=== PATIENT | female | born 1965 | race Caucasian/White ===

== ENCOUNTER 2019-03-14 06:20 | Day surgery (SDC) | payer OTHER ==
[2019-03-14] MEDS ORDERED: LIDOCAINE 2% MDV (20MG/ML) 20ML VIAL IV ONE (06:21)
[2019-03-14] MEDS ORDERED: MIDAZOLAM HCL 2MG/2ML VIAL IV ONE (06:21)
[2019-03-14] MEDS ORDERED: PROPOFOL 10 MG/ML VIAL IV ONE (06:21)
[2019-03-14] MEDS ORDERED: ONDANSETRON HCL IV 4 MG/2 ML VIAL IVP ONE (06:21)
[2019-03-14] MEDS ORDERED: RINGERS SOLUTION,LACTATED 1,000 ML IV ONE (06:45)
[2019-03-14] MEDS ORDERED: LIDOCAINE 1% W/EPI 1:200,000 MPF 30ML SQ ONE (08:14)
[2019-03-14] MEDS ORDERED: BUPIVACAINE 0.25% PF (2.5MG/ML) 10ML VIAL IM ONE (08:14)
[2019-03-14] MEDS ORDERED: DEXAMETHASONE PRESERVATIVE FREE 10MG/ML VIAL SQ ONE (08:14)
[2019-03-14] MEDS ORDERED: BUPIVACAINE 0.5% W/EPI MPF 30 ML VIAL SQ ONE (08:14)
--- NOTE | 2019-03-15 13:51 | Operative Note ---
DATE OF SURGERY: 03/14/2019 PREOPERATIVE DIAGNOSIS: Lumbar spondylosis with sacroiliitis, ICD10 code M46.1. OPERATION: Fluoroscopic-guided infiltration of block bilateral SI joints. INDICATION: This patient presents with pain which is low back and hip. Examination showed tenderness of the lumbar spine away from the midline and directly over the SI joints. Diagnostic studies did show multilevel spondylosis. PROCEDURE: Intravenous line, vital sign monitoring, IV sedation, prepped and draped in sterile technique. Under imaging, the skin over the SI joints in the area of pain was identified and marked, infiltrated. A 22-gauge 3-1/2 inch needle into the SI with 3 mL of 0.5% Marcaine and dexamethasone injected. This was repeated bilaterally. Areas cleaned. Topical antibiotic and sterile dressing applied. Will monitor and evaluate. MTDD
== END 2019-03-14 08:45 | disposition home or self-care (01) ==
LOC: SUR 06:20
PROVIDERS: ATTEND Pain Medicine Interventional Pain Medicine
DX: M46.1 Sacroiliitis, not elsewhere classified (principal); R00.2 Palpitations
CPT/HCPCS: J2405; J7120

== ENCOUNTER 2019-03-23 06:11 | Emergency (ER) | payer OTHER ==
--- NOTE | 2019-03-23 06:25 | Emergency Department Record ---
History of Present Illness - General Chief Complaint: Back Pain/Injury Stated Complaint: SEVERE PERSISITING PAIN IN BACK Time Seen by Provider: 03/23/19 06:14 Source: Patient Mode of Arrival: Ambulatory Limitations: No limitations - History of Present Illness Initial Comments: 53 yo female presents to ED for evaluation of mid-back pain symptoms that began approximately 6 days ago, improved over the course of last weekend, but worsened this morning upon awakening. Patient denies injury or trauma, denies fevers, chills, or recent illness. Patient did undergo recent flouroscopic bilateral infiltrations SI joint on 03/14/19 with improvement in her chronic low-back pain symptoms. Patient reports that this morning's pain symptoms are different, repo rts that she has Flexeril at home that she took last weekend that "knocked her out for 20 hours". Patient is declining medications on examination but requesting radiographs of the thoracic spine for evaluation. Patient denies urinary retention symptoms, numbness over the groin region, or lower extremity weakness on examination. Patient denies previous spinal surgery other than facet block injections. MD Complaint: Back pain Onset/Timin -: Days(s) Similar Symptoms Previously: No Place: Home Radiation: None Severity scale (1-10): 8 Quality: Burning Consistency: Intermittent Improves With: None Worsens With: None Context: Unknown Associated Symptoms: Denies other symptoms Treatments Prior to Arrival: NSAIDS - Related Data Home Medications Medication Instructions Recorded Confirmed Last Taken Atenolol 100 mg PO BID 03/23/19 03/23/19 1 Day Ago ~03/22/19 Buspirone HCl [Buspar] 1 tab PO DAILY 03/23/19 03/23/19 1 Day Ago ~03/22/19 Clonidine HCl 1 tab PO DAILY 03/23/19 03/23/19 1 Day Ago ~03/22/19 Paroxetine HCl [Paroxetine ER] 1 tab PO DAILY 03/23/19 03/23/19 1 Day Ago ~03/22/19 Allergies Allergy/AdvReac Type Severity Reaction Status Date / Time levofloxacin [From Levaquin] AdvReac MUSCLE Verified 03/12/19 09:21 WEAKNESS omeprazole AdvReac MUSCLE Verified 03/12/19 09:21 WEAKNESS Review of Systems Constitutional: Denies: Chills, Fever, Malaise, Night sweats Eyes: Denies: Eye discharge, Eye pain ENT: Denies: Congestion, Ear pain, Epistaxis Respiratory: Denies: Cough, Dyspnea Cardiovascular: Denies: Chest pain, Dyspnea on exertion Endocrine: Denies: Fatigue, Heat or cold intolerance Gastrointestinal: Denies: Abdominal pain, Nausea, Vomiting Genitourinary: Denies: Incontinence, Retention Musculoskeletal: Reports: Back pain. Denies: Arthralgia, Gout, Joint swelling Skin: Denies: Bruising, Change in color Neurological: Denies: Abnormal gait, Confusion, Headache, Seizure Psychiatric: Denies: Anxiety Hematological/Lymphatic: Denies: Anemia, Blood Clots Past Medical History - SOCIAL HISTORY Smoking Status: Current every day smoker - RESPIRATORY Hx Respiratory Disorders: Yes Hx Pneumonia: Yes (2000) Hx Pulmonary Embolism: Yes (1999 POST PT HAD NEG TESTING FOR COAGULOPATHY) - CARDIOVASCULAR Hx Cardio Disorders: Yes Hx Irregular Heartbeat: Yes (CARDIAC ABLATION 1996) Hx Palpitations: Yes (CONTROLLED WITH MEDS) - NEURO Hx Neuro Disorders: Yes Hx Headaches: Yes (HX OF) - GI Hx GI Disorders: No - Hx Genitourinary Disorders: No Comment:: S/P TL - ENDOCRINE Hx Endocrine Disorders: No - MUSCULOSKELETAL Hx Musculoskeletal Disorders: Yes Hx Arthritis: Yes (SPINE) Comment:: PT HAD CERVICAL DISCECTOMY - PSYCH Hx Psych Problems: Yes Hx Anxiety: Yes Hx Depression: Yes - HEMATOLOGY/ONCOLOGY Hx Hematology/Oncology Disorders: Yes Hx Cancer: Yes (BCC ON BACK) Family Medical History Hx Cancer: Father Physical Exam - General General Appearance: Alert, Oriented x3, Cooperative, Anxious, Other (Patient stands from sitting position, ambulates, and sits down on the cart without pain or hesitation on examination. Patient appears teraful and anxious on examination, but is declining medications on examination.) Limitations: No limitations - Head Head exam: Atraumatic, Normocephalic, Normal inspection Head exam detail: negative: Abrasion, Contusion, Gil's sign, General tenderness, Hematoma, Laceration - Eye Eye exam: Normal appearance. negative: Conjunctival injection, Periorbital swelling, Periorbital tenderness, Scleral icterus - ENT Ear exam: negative: Auricular hematoma, Auricular trauma Nasal Exam: negative: Active bleeding, Discharge, Dried blood, Foreign body Mouth exam: negative: Drooling, Laceration, Muffled voice, Tongue elevation - Neck Neck exam: Normal inspection. negative: Meningismus, Tenderness - Respiratory Respiratory exam: Normal lung sounds bilaterally. negative: Rales, Respiratory distress, Rhonchi, Stridor - Cardiovascular Cardiovascular Exam: Regular rate, Normal rhythm, Normal heart sounds - GI/Abdominal GI/Abdominal exam: Soft. negative: Rebound, Rigid, Tenderness - Rectal Rectal exam: Deferred - exam: Deferred - Extremities Extremities exam: Normal inspection. negative: Pedal edema, Tenderness - Back Back exam: Reports: Other (Examination of the thoracic spine appears normal on examination, no paravertebral or vertebral TTP on examination. No evidence for infection present on examination.). Denies: CVA tenderness (R), CVA tenderness (L), Paraspinal tenderness, Vertebral tenderness - Neurological Neurological exam: Alert, Normal gait, Oriented X3 - Psychiatric Psychiatric exam: Anxious - Skin Skin exam: Normal color. negative: Abrasion Type of lesion: negative: abrasion Course Vital Signs 03/23/19 06:17 Temperature 98.0 F Pulse Rate 94 H Respiratory 20 Rate Blood Pressure 154/85 Pulse Ox 98 - Reevaluation(s) Reevaluation #1: 03/23/19 06:23 MAPS was reviewed, no prescriptions filled over the previous 2 years. Patient's operative report from Dr. Angelo 03/14/19 was reviewed as well Patient underwent flouroscopic infiltration of the SI joints bilaterally for presumed sacroilitis. Reevaluation #2: 03/23/19 06:40 Patient was seen and examined. Patient is requesting radiographs of the spine, explained that plain-film radiographs are unlikely to be of benefit in the absence of injury or trauma. Patient however is requesting radiographs following our discussion. Toradol and Valium PO were initially ordered, patient is declining these medications at this time stating "I just want to know what's wrong and who I need to contact to figure out what's wrong". Will obtain radiographs this morning and discuss findings with Dr. Angelo. Reevaluation #3: 03/23/19 07:03 Thoracic Spine: Osteopenia Diffuse degenerative changes throughout I updated the patient on her preliminary radiograph findings pending review and interpretation from radiologist Message left for Dr. Angelo to call the ED for consultation. Reevaluation #4: 03/23/19 07:08 Dr. Angelo returned call, and is in agreement with the plan of care as discussed. Will discharge the patient home with instructions to continue her home regimen of medications at this time. Will discharge the patient home with a copy of her films to take to Dr. Angelo's office either today or Tuesday, office will call her later today to schedule an appointment. There is no clinical or historical evidence for epidural abscess or acute spinal cord compression syndrome based on examination. Patient appears stable for discharge with close follow-up as directed. Disposition Disposition: Discharge Clinical Impression: Thoracic back pain Qualifiers: Chronicity: acute Back pain laterality: unspecified Qualified Code(s): M54.6 - Pain in thoracic spine Disposition: Home, Self-Care Condition: (2) Stable Instructions: Thoracic Back Strain (ED) Additional Instructions: Return to ED if your symptoms worsen or if you have any concerns. Continue Ibuprofen and Flexeril as directed. Dr. Angelo's office will call later today to schedule an appointment either later today or Tuesday for further evaluation. Forms: Patient Portal Access Time of Disposition: 07:12 Quality - Quality Measures Quality Measures: N/A - Blood Pressure Screening Does Patient Have Any of the Following: No Blood Pressure Classification: Pre-Hypertensive BP Reading Systolic Measurement: 154 Diastolic Measurement: 85 Screening for High Blood Pressure: < Pre-Hypertensive BP, F/U Documented > [[id number]] Pre-Hypertensive Follow-up Interventions: Referral to alternative/primary care provider.
[2019-03-23] MEDS ORDERED: DIAZEPAM 5 MG TABLET PO ONE (06:30)
[2019-03-23] MEDS ORDERED: KETOROLAC 60 MG/2 ML VIAL IM STA (06:30)
--- NOTE | 2019-03-24 21:51 | RADIOLOGY REPORT ---
EXAM: THORACIC SPINE HISTORY: PATIENT HAS CHRONIC PAIN. TECHNIQUE: Multiple views of the thoracic spine are provided without comparison examinations. FINDINGS: The vertebral body height, contour, AP alignment of the thoracic spine is within normal limits. Mild disc space height loss with endplate sclerosis is noted throughout the thoracic spine. There is no radiographic evidence of a fracture or dislocation of the thoracic spine. Plate and screw fixation of the lower cervical spine is noted. There are findings suggestive of mild dextroconvex scoliosis of the thoracolumbar spine. IMPRESSION: MILD DEGENERATIVE CHANGES OF THE THORACIC SPINE ARE NOTED WITHOUT RADIOGRAPHIC EVIDENCE OF AN ACUTE PROCESS INVOLVING THE THORACIC SPINE. JOB NUMBER: [id number] [facility]
== END 2019-03-23 07:23 | disposition home or self-care (01) ==
LOC: ER 06:11
DX: F17.210 Nicotine dependence, cigarettes, uncomplicated (principal); M54.6 Pain in thoracic spine
CPT/HCPCS: 72072; 99283; 99284